=== PATIENT | male | born 2000 | race Caucasian/White ===

== ENCOUNTER 2024-08-31 05:15 | Emergency (ER) | payer SELFPAY ==
[2024-08-31 05:17] VITALS: BP 130/78; PULSE 112; RESP 15; TEMP 36.4; O2SAT 100
[2024-08-31] MEDS: ONDANSETRON INJ 4 MG/2 ML VIAL IV PUSH (08:09)
[2024-08-31] MEDS: methylPREDNISolone SOD SUCC 125 MG VIAL IV PUSH (08:09)
[2024-08-31] MEDS: diphenhydrAMINE HCl INJ 50 MG/ML VIAL 25 MG IV PUSH (08:09)
[2024-08-31] MEDS: SODIUM CHLORIDE 0.9% IV 1,000 ML 999 ML IV CONT (08:10)
[2024-08-31 08:18] VITALS: BP 129/69; PULSE 78; RESP 20; TEMP 36.6; O2SAT 100
--- NOTE | 2024-08-31 08:43 | ED_ITS ---
HPI - Allergic Reaction General Chief complaint: Allergic Reaction Stated complaint: allergic reaction Time Seen by Provider: 08/31/24 07:33 History of Present Illness HPI narrative: Patient is a 24-year-old male who presents ER with concerns for allergic reaction. Over his hands and groin he has been developing red itching raised rash. He has been on amoxicillin over last week for dental infection. No longer has dental pain. No difficulty breathing or swallowing. He tried to hill lf tablet Benadryl with minimal improvement. Last dose of medication was last night. Also reports mild nausea. Related Data Allergies Allergy/AdvReac Type Severity Reaction Status Date / Time amoxicillin Allergy Rash Verified 08/31/24 08:08 Review of Systems Constitutional: Constitutional: Reports no additional constitutional complaints Cardiovascular: Cardiovascular: Reports no additional cardiovascular complaints Respiratory: Respiratory: Reports no additional respiratory complaints Integumentary/Breasts: Skin/Breast: Reports pruritus, Reports erythema and Reports rash Allergic/Immunologic: Allergic/Immunologic: Denies lip swelling, Denies throat swelling and Denies tongue swelling PMFSH Past Medical History Medical History (Updated 08/31/24 @ 09:03 by Josias Junior MD) Healthy adult male Surgical History Surgical History (Updated 08/31/24 @ 08:57 by Josias Junior MD) No pertinent past surgical history Exam Narrative: GENERAL: Well-appearing, well-nourished, and in no acute distress. HEAD: Normocephalic, atraumatic. ENT: Mucous membranes moist. Normal appearing posterior oropharynx. No angioedema of the lips/tongue/uvula. Impacted wisdom tooth 17. Without significant infection. NECK: Supple. CHEST: Clear to auscultation. No respiratory distress. HEART: Regular rate and rhythm. No murmur heard. Normal peripheral pulses. EXTREMITIES: Normal range of motion. No edema. SKIN: Warm, dry. Rash predominantly over left volar wrist/forearm that is raised and erythematous. There is some additional raised reddened areas to the inguinal creases. He has blotching to the right wrist in the right shoulder. NEURO: Alert and oriented x3. PSYCH: Normal mood and affect. Course Course Emergency Course: Rash consistent with allergic reaction. Benadryl/Solu-Medrol given and patient's itching and tightness is improving. Discontinue offending medication and will discharge with supportive medications. Vital Signs Vital signs: Vital Signs Temperature 97.6 F 08/31/24 05:17 Pulse Rate 112 H 08/31/24 05:17 Respiratory Rate 15 08/31/24 05:17 Blood Pressure 130/78 08/31/24 05:17 Pulse Oximetry 100 08/31/24 05:17 Oxygen Delivery Room Air 08/31/24 05:17 Temperature 97.8 F 08/31/24 08:18 Pulse Rate 78 08/31/24 08:18 Respiratory Rate 20 08/31/24 08:18 Blood Pressure 129/69 08/31/24 08:18 Pulse Oximetry 100 08/31/24 08:18 Oxygen Delivery Room Air 08/31/24 05:17 Discharge Plan Discharge Clinical Impression: Allergic reaction Patient Disposition: Home, Self-Care Condition: Stable Instructions: General Allergic Reaction (ED) Additional Instructions: Do not take penicillin based medicines as you have developed a significant allergic reaction. You should take Benadryl as needed for itching. Take steroids over the next couple of days to help with her swelling and rash. Patient Language: Turkmen Prescriptions: New prednisone 20 mg tablet 40 mg PO DAILY Qty: 10 0RF Follow-up/Referrals: Jon Suresh MD [Physician] - 1 Week PHYSICIAN,OBSTETRICS/GYNECOLOGY NURSE [Primary Care Provider] -
== END 2024-08-31 09:31 | disposition home or self-care (01) ==
PROVIDERS: Emergency Provider Emergency Medicine
DX: T78.40XA Allergy, unspecified, initial encounter (principal)
CPT/HCPCS: 96361; 96374; 96375; 99284; J1200; J2405; J2919; J7030